=== PATIENT | female | born 2000 | race Caucasian/White ===

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

== ENCOUNTER 2019-02-13 09:32 | Emergency (ER) | payer MEDICAID, OTHER ==
[~2019-02-13] VITALS: Ht 160 cm; Wt 49.9 kg
--- NOTE | 2019-02-13 09:40 | NUR ---
PT AMBULATED TO BED 06.
[2019-02-13 09:43] VITALS: BP 111/73
--- NOTE | 2019-02-13 10:05 | NUR ---
PATIENT PRESENTS TO ED WITH C/O VAG BLEED SINCE LAST NIGHT, STATED SMALL SPOTTING, WAS ABDOMINAL CRAMPING LAST NIGHT, BUT NOT NOW. APPROX 10 WEEKS . NO MED HX. DENIES PAIN,VSS; PATIENT POSITIONED FOR COMFORT; HOB ELEVATED; BEDRAILS UP X2; BED DOWN. ER MD MADE AWARE OF PT STATUS.
--- NOTE | 2019-02-13 10:09 | NUR ---
OFF UINT FOR US
--- NOTE | 2019-02-13 10:40 | NUR ---
LAB COLLECTED AND SENT TO LAB.
[2019-02-13 11:05] LABS: APPEARANCE,URINE HAZY (CLEAR); BILIRUBIN,URINE NEGATIVE (NEGATIVE); COLOR,URINE YELLOW (YELLOW); LEUKOCYTE ESTERASE ,URINE NEGATIVE (NEGATIVE); NITRITE, URINE NEGATIVE (NEGATIVE); PH,URINE 7.5 (5.0-9.0); UGLUCOSE NEGATIVE (NEGATIVE)
[2019-02-13 11:06] LABS: BASOPHILS % (AUTO) 0.3 % (0.0-2.0); EOSINOPHILS % (AUTO) 0.4 % (0.0-4.0); HEMATOCRIT 36.2 % (36-48); HEMOGLOBIN 11.4 g/dL (12.0-16.0); LYMPHOCYTES # (AUTO) 1.4 K/uL (2.5-16.5); LYMPHOCYTES % (AUTO) 24.8 % (20.5-51.1); MEAN CORPUSCULAR HEMOGLOBIN 23 pg (27-31); MEAN CORPUSCULAR HGB CONC 32 g/dL (33-37); MEAN CORPUSCULAR VOLUME 73.1 fL (80-94); MONOCYTES # (AUTO) 0.4 K/uL (0.8-1.0); MONOCYTES % (AUTO) 6.9 % (1.7-9.3); NEUTROPHILS # (AUTO) 3.9 K/uL (1.8-7.7); NEUTROPHILS % (AUTO) 67.6 % (42.2-75.2); PLATELET COUNT (AUTO) 191 K/uL (140-450); RED BLOOD CELL COUNT(AUTO) 4.95 MIL/uL (4.20-5.40); RED CELL DISTRIBUTION WIDTH 17.9 % (11.6-13.7); WHITE BLOOD COUNT (AUTO) 5.7 K/uL (4.5-11.0)
[2019-02-13 11:12] LABS: WBC,URINE 0-5 /HPF (0-5)
[2019-02-13 11:13] LABS: BLOOD, URINE 1+ (NEGATIVE)
[2019-02-13 12:45] VITALS: BP 105/68
--- NOTE | 2019-02-13 12:45 | NUR ---
Patient discharged with v/s stable. Written and verbal after care instructions given and explained. Patient verbalized understanding. Ambulatory with steady gait. All questions addressed prior to discharge. Advised to follow up with PMD.
== END 2019-02-13 12:45 | disposition home or self-care (01) ==
LOC: MED 09:32
DX: O20.0 Threatened abortion (principal); Z3A.10 10 weeks gestation of pregnancy
CPT/HCPCS: 36415; 76817; 81001; 81025; 84702; 85025; 86900; 86901; 99284; Q0092

== ENCOUNTER 2019-06-09 10:45 | Observation (INO) | payer MEDICAID, OTHER ==
[~2019-06-09] VITALS: Ht 160 cm; Wt 49.9 kg
[2019-06-09 10:51] VITALS: BP 108/57
--- NOTE | 2019-06-09 11:02 | NUR ---
TAKEN TO LABOR AND DELIVERY VIA WHEELCHAIR, REPORT TO HOME MARCUS.
[2019-06-09 12:34] LABS: BASOPHILS % (AUTO) 0.3 % (0.0-2.0); EOSINOPHILS % (AUTO) 0.5 % (0.0-4.0); HEMATOCRIT 31.4 % (36-48); HEMOGLOBIN 10.4 g/dL (12.0-16.0); LYMPHOCYTES # (AUTO) 1.5 K/uL (2.5-16.5); LYMPHOCYTES % (AUTO) 16.6 % (20.5-51.1); MEAN CORPUSCULAR HEMOGLOBIN 26 pg (27-31); MEAN CORPUSCULAR HGB CONC 33 g/dL (33-37); MEAN CORPUSCULAR VOLUME 78.4 fL (80-94); MONOCYTES # (AUTO) 0.5 K/uL (0.8-1.0); MONOCYTES % (AUTO) 5.3 % (1.7-9.3); NEUTROPHILS # (AUTO) 6.8 K/uL (1.8-7.7); NEUTROPHILS % (AUTO) 77.3 % (42.2-75.2); PLATELET COUNT (AUTO) 209 K/uL (140-450); WHITE BLOOD COUNT (AUTO) 8.8 K/uL (4.5-11.0)
[2019-06-09 12:54] LABS: APPEARANCE,URINE SL CLOUDY (CLEAR); BILIRUBIN,URINE NEGATIVE (NEGATIVE); BLOOD, URINE 3+ (NEGATIVE); COLOR,URINE YELLOW (YELLOW); LEUKOCYTE ESTERASE ,URINE 1+ (NEGATIVE); NITRITE, URINE NEGATIVE (NEGATIVE); UGLUCOSE NEGATIVE (NEGATIVE)
[2019-06-09 12:57] LABS: WBC,URINE 0-5 /HPF (0-5)
[2019-06-11 06:11] LABS: CHLAMYDIA TRACHOMATIS AMP DNA Negative (Negative)
== END 2019-06-09 18:30 | disposition home or self-care (01) ==
LOC: MED 10:45 → MLD 11:00
PROVIDERS: ADMIT Obstetrics & Gynecology; ATTEND Obstetrics & Gynecology
DX: O46.92 Antepartum hemorrhage, unspecified, second trimester (principal); Z3A.25 25 weeks gestation of pregnancy; Z79.899 Other long term (current) drug therapy
CPT/HCPCS: 36415; 76805; 76817; 81001; 85025; 85384; 86886; 86900; 86901; 87086; 87210; 87491; 99281; G0378; Q0092

== ENCOUNTER 2019-09-12 02:02 | Inpatient (IN) | payer OTHER ==
[~2019-09-12] VITALS: Ht 160 cm; Wt 55.8 kg
[2019-09-12] MEDS ORDERED: FERR-252 PO (02:41)
[2019-09-12] MEDS ORDERED: OXYTOCIN 20 UNITS in LACTATED RINGERS 1,000 ML IV SCH (04:25)
[2019-09-12] MEDS ORDERED: fentaNYL 0.05 MG/ML VIAL IVP PRN (04:25)
[2019-09-12] MEDS ORDERED: METHYLERGONOVINE 0.2 MG/ML AMP IM PRN ×2 (04:25→23:45)
[2019-09-12] MEDS: LACTATED RINGERS 1,000 ML IV SCH ×2 (04:56→05:05)
[2019-09-12 05:28] LABS: BASOPHILS % (AUTO) 0.3 % (0.0-2.0); EOSINOPHILS # (AUTO) 0.1 K/uL (0-0.4); HEMATOCRIT 33.2 % (36-48); HEMOGLOBIN 11.1 g/dL (12.0-16.0); LYMPHOCYTES # (AUTO) 2.6 K/uL (2.5-16.5); LYMPHOCYTES % (AUTO) 26.8 % (20.5-51.1); MEAN CORPUSCULAR HEMOGLOBIN 26 pg (27-31); MEAN CORPUSCULAR HGB CONC 33 g/dL (33-37); MEAN CORPUSCULAR VOLUME 78.6 fL (80-94); MONOCYTES # (AUTO) 0.7 K/uL (0.8-1.0); MONOCYTES % (AUTO) 7.3 % (1.7-9.3); NEUTROPHILS # (AUTO) 6.3 K/uL (1.8-7.7); NEUTROPHILS % (AUTO) 64.6 % (42.2-75.2); PLATELET COUNT (AUTO) 205 K/uL (140-450); RED BLOOD CELL COUNT(AUTO) 4.22 MIL/uL (4.20-5.40); RED CELL DISTRIBUTION WIDTH 15.3 % (11.6-13.7); WHITE BLOOD COUNT (AUTO) 9.8 K/uL (4.5-11.0)
[2019-09-12 05:54] LABS: BILIRUBIN,URINE NEGATIVE (NEGATIVE); COLOR,URINE YELLOW (YELLOW); LEUKOCYTE ESTERASE ,URINE TRACE (NEGATIVE); NITRITE, URINE NEGATIVE (NEGATIVE); UGLUCOSE NEGATIVE (NEGATIVE)
[2019-09-12 06:21] LABS: APPEARANCE,URINE SLIGHTLY HAZY (CLEAR)
[2019-09-12 06:22] LABS: WBC,URINE 0-5 /HPF (0-5)
[2019-09-12 06:23] LABS: BLOOD, URINE 1+ (NEGATIVE)
[2019-09-12 06:24] LABS: RBC,URINE 0-5 /HPF (0-5)
[2019-09-12 11:28] LABS: ALBUMIN 2.8 g/dL (3.4-5.0); CARBON DIOXIDE 22.2 mmol/L (21-32); CREATININE 0.5 mg/dL (0.6-1.3)
[2019-09-12 11:45] LABS: ANION GAP 17.1 (8-16); POTASSIUM 3.8 mmol/L (3.5-5.1)
[2019-09-12] MEDS ORDERED: ROPIVACAINE 0.2%/NS PREMIX 200 ML EPI ONE (12:59)
[2019-09-12] MEDS ORDERED: ROPIVACAINE 0.2%/NS PREMIX 200 ML EPI SCH (13:35)
[2019-09-12] MEDS ORDERED: OXYTOCIN 20 UNITS/LR PREMIX 1,000 ML IV ONE (16:59)
[2019-09-12] MEDS ORDERED: ONDANSETRON 4 MG/2 ML VIAL IVP PRN (17:45)
[2019-09-12] MEDS ORDERED: ONDANSETRON 4 MG/2 ML VIAL ONE (17:48)
[2019-09-12] MEDS ORDERED: BENZOCAINE/MENTHOL 20%-0.5% 60 GM CAN TP PRN (23:45)
[2019-09-12] MEDS ORDERED: MEASLES, MUMPS, AND RUBELLA 1 VIAL SQVAC PRN (23:45)
[2019-09-12] MEDS ORDERED: METHYLERGONOVINE 0.2 MG TAB PO PRN (23:45)
[2019-09-12] MEDS ORDERED: IBUPROFEN 800 MG TAB PO PRN (23:45)
[2019-09-12] MEDS ORDERED: OXYTOCIN 10 UNITS/ML VIAL IM PRN (23:45)
[2019-09-13 06:13] LABS: HEMATOCRIT 29.6 % (36-48)
--- NOTE | 2019-09-13 09:34 | NUR ---
PATIENT HAS BEEN SCREENED AND CATEGORIZED LOW NUTRITION RISK. PATIENT WILL BE SEEN WITHIN 7 DAYS OF ADMISSION. 09/18/[address]
== END 2019-09-14 17:05 | disposition home or self-care (01) | DRG 560 ==
LOC: MLD 02:02 → OBSVTOIN 04:28 → MFCC 09-13 00:46
PROVIDERS: ADMIT Obstetrics & Gynecology; ATTEND Obstetrics & Gynecology
PROC: 10E0XZZ Delivery of Products of Conception, External Approach (ICD-10-PCS; principal; 2019-09-12)
PROC: 10907ZC Drainage of Amniotic Fluid, Therapeutic from Products of Conception, Via Natural or Artificial Opening (ICD-10-PCS; 2019-09-12)
PROC: 0KQM0ZZ Repair Perineum Muscle, Open Approach (ICD-10-PCS; 2019-09-12)
PROC: 00HU33Z Insertion of Infusion Device into Spinal Canal, Percutaneous Approach (ICD-10-PCS; 2019-09-12)
PROC: 3E0R3BZ Introduction of Anesthetic Agent into Spinal Canal, Percutaneous Approach (ICD-10-PCS; 2019-09-12)
PROC: 3E0234Z Introduction of Serum, Toxoid and Vaccine into Muscle, Percutaneous Approach (ICD-10-PCS; 2019-09-13)
DX: O69.81X0 Labor and delivery complicated by cord around neck, without compression, not applicable or unspecified (principal); D62 Acute posthemorrhagic anemia; O90.81 Anemia of the puerperium; O70.1 Second degree perineal laceration during delivery; Z37.0 Single live birth; Z3A.39 39 weeks gestation of pregnancy; Z23 Encounter for immunization
CPT/HCPCS: G0378 ×2; 36415; 51702; 59409; 80053; 81001; 85018; 85025; 86592; 86886; 86900; 86901; J2405; J2590; J2795; J7120

== ENCOUNTER 2020-10-30 17:22 | Emergency (ER) | payer OTHER ==
[~2020-10-30] VITALS: Ht 160 cm; Wt 47.8 kg
[~2020-10-30 17:22] MED LIST: FERR-252 PO
[2020-10-30 17:31] VITALS: BP 126/74
[2020-10-30] MEDS ORDERED: POLY10SO OP (17:46)
--- NOTE | 2020-10-30 18:32 | NUR ---
SAW PT IN LOBBY. NO NURSING INTERVENTIONS GIVEN
[2020-10-30 18:33] VITALS: BP 126/74
--- NOTE | 2020-10-30 18:34 | NUR ---
Patient discharged with v/s stable. Written and verbal after care instructions given and explained. Patient alert, oriented and verbalized understanding of instructions. Ambulatory with steady gait. All questions addressed prior to discharge. ID band removed. Patient advised to follow up with PMD. Rx of OLYTRIM EYE DROPS 10 ML 1 DROP DAILY given. Patient educated on indication of medication including possible reaction and side effects. Opportunity to ask questions provided and answered.
== END 2020-10-30 18:34 | disposition home or self-care (01) ==
LOC: MED 17:22
DX: H10.9 Unspecified conjunctivitis (principal); Z79.899 Other long term (current) drug therapy
CPT/HCPCS: 99283

== ENCOUNTER 2021-05-20 00:24 | Emergency (ER) | payer OTHER ==
[~2021-05-20] VITALS: Ht 160 cm; Wt 49.9 kg
[~2021-05-20 00:24] MED LIST changes: +POLY10SO OP
[2021-05-20 00:35] VITALS: BP 140/90
--- NOTE | 2021-05-20 00:35 | NUR ---
TO BED AMBULATORY
--- NOTE | 2021-05-20 00:50 | NUR ---
RECEIVED IN BED 11 WITH C/O POSSIBLE ALLERGIC REACTION. PT STATES ALLERGIES TO PEANUTS AND PEACHES BUT DID NOT EAT THOSE. PT ALSO STATES THAT SHE HAS AN EPI PEN BUT DIDN'T USE IT BECAUSE IT WAS . SLIGHT SWELLING NOTED TO EYELIDS. RESPIRATIONS ARE REGULAR AND UNLABORED. PMH : MARIUSZ SHAW
[2021-05-20] MEDS ORDERED: PRED20TA5 PO (01:19)
[2021-05-20] MEDS ORDERED: DIPH25TA53 PO (01:19)
[2021-05-20] MEDS ORDERED: FAMO-90 PO (01:19)
[2021-05-20] MEDS ORDERED: predniSONE 20 MG TAB PO ONE (01:20)
[2021-05-20] MEDS ORDERED: FAMOTIDINE 20 MG TAB PO ONE (01:20)
[2021-05-20 01:48] VITALS: BP 140/90
== END 2021-05-20 01:48 | disposition home or self-care (01) ==
LOC: MED 00:24
DX: T78.40XA Allergy, unspecified, initial encounter (principal); R21 Rash and other nonspecific skin eruption; F12.90 Cannabis use, unspecified, uncomplicated; Z79.899 Other long term (current) drug therapy; X58.XXXA Exposure to other specified factors, initial encounter
CPT/HCPCS: 99284; J7512; Q0163

== ENCOUNTER 2022-01-22 21:10 | Emergency (ER) | payer OTHER ==
[~2022-01-22] VITALS: Ht 160 cm; Wt 46.7 kg
[~2022-01-22 21:10] MED LIST changes: +DIPH25TA53 PO; +FAMO-90 PO; +PRED20TA5 PO
[2022-01-22 21:14] VITALS: BP 131/75
--- NOTE | 2022-01-22 21:16 | NUR ---
PT AMBULATED TO ED 11, REPORT GIVEN TO ARSALAN BHAT. PT PLACED ON DIRECTOR OF CARDIOLOGY, DR GARCIA NOTIFIED.
--- NOTE | 2022-01-22 21:19 | NUR ---
Nadia linn in [facility] - 01/23/22 at 0042 by ESTER PT TAKEN TO BED 11
--- NOTE | 2022-01-22 21:23 | NUR ---
Dr. Alba examining patient.
[2022-01-22] MEDS ORDERED: EPINEPHrine 1 MG/ML AMP IM ONE (21:25)
[2022-01-22] MEDS ORDERED: FAMOTIDINE 20 MG/2 ML VIAL IVP ONE (21:25)
[2022-01-22] MEDS ORDERED: diphenhydrAMINE 50 MG/ML VIAL IVP ONE (21:25)
[2022-01-22] MEDS ORDERED: methylPREDNISolone SS 125 MG/2 ML VIAL IVP ONE (21:25)
[2022-01-22] MEDS ORDERED: NACL 0.9% 1,000 ML IV ONE (21:25)
--- NOTE | 2022-01-22 21:40 | NUR ---
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 SHE ISNT SURE WHAT INGREDIENTS THE FOOD HAD, BUT STARTED FEELING SWELLING OF THE THROAT AND LOTS OF DISCOMFORT. PATIENT SATING AT 98% O2. PATIENT RR ARE EVEN AND UNLABORED. PLACED ON MONITOR. IV INITIATED 18G RIGHT AC. ERMD AT BEDSIDE DENIES PMHX, RX NKA
[2022-01-22] MEDS ORDERED: FAMO-90 PO (22:31)
[2022-01-22] MEDS ORDERED: DIPH25TA53 PO (22:31)
[2022-01-22] MEDS ORDERED: EPIN1KIT31 IM (22:31)
[2022-01-22] MEDS ORDERED: PRED20TA5 PO (22:31)
--- NOTE | 2022-01-22 23:15 | NUR ---
PT IS AWAKE AND ALERT. ALL NEEDS MET AT THIS TIME. PT ON SHIATSU THERAPIST.
--- NOTE | 2022-01-23 | NUR ---
MAGUI CERVANTES AT BEDSIDE
[2022-01-23 00:30] VITALS: BP 110/60
--- NOTE | 2022-01-23 00:30 | NUR ---
Patient discharged with v/s stable. Written and verbal after care instructions given ON ANAPHYLACTIC RXN and explained. Patient alert, oriented and verbalized understanding of instructions. Ambulatory with steady gait. All questions addressed prior to discharge. ID band removed. Patient advised to follow up with PMD. Rx of BENADRYL, EPIPEN, PEPCID, DELTASONE given.
== END 2022-01-23 00:30 | disposition home or self-care (01) ==
LOC: MED 21:10
DX: K13.79 Other lesions of oral mucosa (principal); T78.1XXA Other adverse food reactions, not elsewhere classified, initial encounter; X58.XXXA Exposure to other specified factors, initial encounter
CPT/HCPCS: 96361; 96372; 96374; 96375; 99285; J0171; J1200; J2930; J3490; J7030

== ENCOUNTER 2022-01-25 10:53 | Emergency (ER) | payer OTHER ==
[~2022-01-25] VITALS: Ht 160 cm; Wt 45.4 kg
[~2022-01-25 10:53] MED LIST changes: +EPIN1KIT31 IM
[2022-01-25 10:55] VITALS: BP 123/79
--- NOTE | 2022-01-25 10:58 | NUR ---
pt ambulated to bed 07
--- NOTE | 2022-01-25 11:05 | NUR ---
DR HALE AT BEDSIDE.
[2022-01-25] MEDS ORDERED: NACL 0.9% 1,000 ML IV ONE (11:10)
[2022-01-25] MEDS ORDERED: METOCLOPRAMIDE 10 MG TAB PO ONE (11:10)
--- NOTE | 2022-01-25 11:23 | NUR ---
LAB AT BEDSIDE.
[2022-01-25 11:40] LABS: BASOPHILS % (AUTO) 0.6 % (0.0-2.0); EOSINOPHILS % (AUTO) 0.3 % (0.0-4.0); HEMATOCRIT 39.3 % (36-48); HEMOGLOBIN 13.2 g/dL (12.0-16.0); LYMPHOCYTES # (AUTO) 1.2 K/uL (2.5-16.5); LYMPHOCYTES % (AUTO) 16.4 % (20.5-51.1); MEAN CORPUSCULAR HEMOGLOBIN 27 pg (27-31); MEAN CORPUSCULAR HGB CONC 34 g/dL (33-37); MEAN CORPUSCULAR VOLUME 79.9 fL (80-94); MONOCYTES # (AUTO) 0.3 K/uL (0.8-1.0); MONOCYTES % (AUTO) 4.4 % (1.7-9.3); NEUTROPHILS # (AUTO) 5.8 K/uL (1.8-7.7); NEUTROPHILS % (AUTO) 78.3 % (42.2-75.2); PLATELET COUNT (AUTO) 181 K/uL (140-450); RED BLOOD CELL COUNT(AUTO) 4.92 MIL/uL (4.20-5.40); RED CELL DISTRIBUTION WIDTH 14.3 % (11.6-13.7); WHITE BLOOD COUNT (AUTO) 7.4 K/uL (4.8-10.8)
--- NOTE | 2022-01-25 11:51 | NUR ---
Ultrasound at bedside.
[2022-01-25 12:03] LABS: ANION GAP 13.7 (8-16); CARBON DIOXIDE 23.8 mmol/L (21-32); CREATININE 0.4 mg/dL (0.6-1.3); POTASSIUM 3.5 mmol/L (3.5-5.1); TOTAL BILIRUBIN 1.7 mg/dL (0.0-1.0)
--- NOTE | 2022-01-25 12:05 | NUR ---
ULTRASOUND AT BEDSIDE.
[2022-01-25] MEDS ORDERED: DEXT 5% / NACL 0.9% 500 ML IV ONE (12:25)
--- NOTE | 2022-01-25 13:59 | NUR ---
PT AMBULATED TO THE BATHROOM.
[2022-01-25] MEDS ORDERED: DOXY25TA30 PO (14:27)
[2022-01-25] MEDS ORDERED: PYRI25TA15 PO (14:27)
[2022-01-25 14:47] VITALS: BP 127/64
--- NOTE | 2022-01-25 14:49 | NUR ---
Patient discharged with v/s stable. Written and verbal after care instructions given and explained. Patient alert, oriented and verbalized understanding of instructions. Ambulatory with steady gait. All questions addressed prior to discharge. ID band removed. Patient advised to follow up with PMD. Rx of DOXYLAMINE SUCCINATE, PYRIDOXINE HCI given. Opportunity to ask questions provided and answered.
--- NOTE | 2022-01-25 14:50 | NUR ---
Chart checked and completed. The patient's care was reviewed and supervised by Carla Cohen RN.
== END 2022-01-25 14:49 | disposition home or self-care (01) ==
LOC: MED 10:53
DX: O20.0 Threatened abortion (principal); O21.9 Vomiting of pregnancy, unspecified; Z3A.01 Less than 8 weeks gestation of pregnancy
CPT/HCPCS: 36415; 76817; 80053; 81002; 81025; 83690; 84702; 85025; 86900; 86901; 96361; 96365; 99284; J7030; Q0092

== ENCOUNTER 2022-07-17 20:15 | Observation (INO) | payer OTHER ==
[~2022-07-17] VITALS: Ht 160 cm; Wt 52.2 kg
[~2022-07-17 20:15] MED LIST changes: +DOXY25TA30 PO; +PYRI25TA15 PO
[2022-07-17] MEDS ORDERED: PREN-368 PO (22:09)
[2022-07-17] MEDS ORDERED: FERR-212 PO (22:09)
== END 2022-07-17 22:25 | disposition home or self-care (01) ==
LOC: MLD 20:15
PROVIDERS: ADMIT Obstetrics & Gynecology; ATTEND Obstetrics & Gynecology
DX: O26.893 Other specified pregnancy related conditions, third trimester (principal); R10.9 Unspecified abdominal pain; O46.93 Antepartum hemorrhage, unspecified, third trimester; Z3A.31 31 weeks gestation of pregnancy
CPT/HCPCS: G0378